=== PATIENT | male | born 1950 | race Caucasian/White ===

== ENCOUNTER → 2017-03-18 | Outpatient (CLI) | payer OTHER, MEDICAID ==
[2017-02-23 17:18] VITALS: BP 139/85
[2017-03-18 11:14] LABS: BASOPHILS # (AUTO) 0.1 X10^3/uL (0.0-0.1); BASOPHILS % (AUTO) 0.9 % (0.2-1.0); EOSINOPHILS # (AUTO) 0.2 x10^3/uL (0.0-0.2); EOSINOPHILS % (AUTO) 2.2 % (0.9-2.9); HEMATOCRIT 51.3 % (42.0-54.0); HEMOGLOBIN 17.6 g/dL (13.5-18.0); LYMPHOCYTES # (AUTO) 2.4 X10^3/uL (1.3-2.9); LYMPHOCYTES % (AUTO) 24.4 % (21.0-51.0); MEAN CORPUSCULAR HEMOGLOBIN 31.3 pg (27.0-34.0); MEAN CORPUSCULAR HGB CONC 34.4 g/dL (33.0-35.0); MEAN CORPUSCULAR VOLUME 91.2 fL (80.0-100.0); MEAN PLATELET VOLUME 8.4 fL (7.4-11.0); MONOCYTES # (AUTO) 0.8 x10^3/uL (0.3-0.8); MONOCYTES % (AUTO) 7.7 % (0.0-13.0); NEUTROPHILS # (AUTO) 6.4 x10^3/uL (2.2-4.8); NEUTROPHILS % (AUTO) 64.8 % (42.0-75.0); PLATELET COUNT 210 X10^3/uL (150.0-450.0); RED BLOOD COUNT 5.63 X10^6/uL (4.7-6.0); RED CELL DISTRIBUTION WIDTH 13.7 % (11.6-16.5)
[2017-03-18 11:21] LABS: ALANINE AMINOTRANSFERASE 39 Units/L (12-78); ALBUMIN 3.8 g/dL (3.4-5.0); ALKALINE PHOSPHATASE 53 Units/L (46-116); ASPARTATE AMINO TRANSFERASE 24 Units/L (15-37); BILIRUBIN,DIRECT 0.11 mg/dL (0-0.2); BLOOD UREA NITROGEN 26 mg/dL (7-18); CALCIUM 8.8 mg/dL (8.5-10.1); CARBON DIOXIDE 24.8 mmol/L (21-32); CHLORIDE 109 mmol/L (98-107); CHOL/HDL RATIO 2.9 (0.0-5.0); CHOLESTEROL 108 mg/dL (0-200); CREATININE 1.94 mg/dL (0.70-1.30); GLUCOSE 107 mg/dL (65-99); HDL CHOLESTEROL 37 mg/dL (40-60); SODIUM 142 mmol/L (136-145); TOTAL PROTEIN 7.2 g/dL (6.4-8.2); TRIGLYCERIDES 126 mg/dL (0-150); eGFR BLACK RACES 44 (>60); eGFR NON BLACK RACES 37 (>60)
== END ==
LOC: LAB 10:40
PROVIDERS: ATTEND Physician Assistant
DX: R94.39 Abnormal result of other cardiovascular function study (principal); I10 Essential (primary) hypertension; E78.4 Other hyperlipidemia
CPT/HCPCS: 36415; 80048; 80061; 80076; 85025

== ENCOUNTER → 2017-03-31 | Outpatient (CLI) | payer OTHER, MEDICAID ==
[2017-02-23 17:18] VITALS: BP 139/85
[2017-03-31 09:44] LABS: BASOPHILS # (AUTO) 0.1 X10^3/uL (0.0-0.1); EOSINOPHILS # (AUTO) 0.2 x10^3/uL (0.0-0.2); EOSINOPHILS % (AUTO) 1.8 % (0.9-2.9); HEMATOCRIT 49.9 % (42.0-54.0); HEMOGLOBIN 17.4 g/dL (13.5-18.0); LYMPHOCYTES # (AUTO) 2.3 X10^3/uL (1.3-2.9); LYMPHOCYTES % (AUTO) 21.4 % (21.0-51.0); MEAN CORPUSCULAR HEMOGLOBIN 31.4 pg (27.0-34.0); MEAN CORPUSCULAR HGB CONC 34.8 g/dL (33.0-35.0); MEAN CORPUSCULAR VOLUME 90.1 fL (80.0-100.0); MEAN PLATELET VOLUME 8.5 fL (7.4-11.0); MONOCYTES # (AUTO) 0.8 x10^3/uL (0.3-0.8); MONOCYTES % (AUTO) 7.8 % (0.0-13.0); NEUTROPHILS # (AUTO) 7.4 x10^3/uL (2.2-4.8); PLATELET COUNT 223 X10^3/uL (150.0-450.0); RED BLOOD COUNT 5.54 X10^6/uL (4.7-6.0); RED CELL DISTRIBUTION WIDTH 13.3 % (11.6-16.5); WHITE BLOOD COUNT 10.9 X10^3/uL (3.6-10.0)
[2017-03-31 09:54] LABS: ALBUMIN 3.7 g/dL (3.4-5.0); BLOOD UREA NITROGEN 30 mg/dL (7-18); CARBON DIOXIDE 21.8 mmol/L (21-32); CHLORIDE 109 mmol/L (98-107); CHOL/HDL RATIO 2.9 (0.0-5.0); CHOLESTEROL 112 mg/dL (0-200); COR NA(FOR HYPERGLY) 140 mmol/L (136-145); CREATININE 1.78 mg/dL (0.70-1.30); GLUCOSE 120 mg/dL (65-99); HDL CHOLESTEROL 38 mg/dL (40-60); PHOSPHORUS 3.4 mg/dL (2.6-4.7); SODIUM 140 mmol/L (136-145); TRIGLYCERIDES 102 mg/dL (0-150); eGFR BLACK RACES 49 (>60); eGFR NON BLACK RACES 40 (>60)
== END ==
LOC: LAB 09:25
PROVIDERS: ATTEND Internal Medicine
DX: I12.9 Hypertensive chronic kidney disease with stage 1 through stage 4 chronic kidney disease, or unspecified chronic kidney disease (principal); N18.3 Chronic kidney disease, stage 3 (moderate)
CPT/HCPCS: 36415; 80061; 80069; 85025

== ENCOUNTER 2017-04-07 18:24 | Emergency (ER) | payer OTHER, MEDICAID ==
[2017-04-07 18:28] VITALS: BP 119/73; BMI 25.5
== END 2017-04-07 20:04 | disposition left against medical advice (07) ==
LOC: ER 18:34
DX: R19.09 Other intra-abdominal and pelvic swelling, mass and lump (principal); Z98.890 Other specified postprocedural states
CPT/HCPCS: 99281

== ENCOUNTER 2017-05-20 09:47 | Day surgery (SDC) | payer OTHER, MEDICAID ==
[2017-05-20] MEDS ORDERED: VERSED ONE (10:15)
[2017-05-20] MEDS ORDERED: NS 500 ML IV 500 ML IV ONE (10:15)
[2017-05-20] MEDS ORDERED: DIPRIVAN VIAL ONE (10:15)
[2017-05-20] MEDS ORDERED: TETRACAINE 0.5% OPHTH 1 DOSE AFFEYE ONE ×4 (10:15→13:30)
[2017-05-20] MEDS ORDERED: VIGAMOX 0.5% OPHTH 1 DOSE AFFEYE ONE ×5 (10:20→13:41)
[2017-05-20] MEDS ORDERED: PROLENSA OPHTH 1 DOSE AFFEYE ONE (10:31)
[2017-05-20] MEDS ORDERED: ALPHAGAN-P OPHTH 1 DOSE AFFEYE ONE (10:32)
[2017-05-20] MEDS ORDERED: MYDRIACIL OPHTH 1 DOSE AFFEYE ONE ×3 (10:33→10:35)
[2017-05-20] MEDS ORDERED: CYCLOGYL 1% OPHTH 1 DOSE OP ONE ×3 (10:33→10:35)
[2017-05-20] MEDS ORDERED: AK-DILATE 2.5% OPHTH 1 DOSE OP ONE ×3 (10:33→10:35)
[2017-05-20] MEDS ORDERED: BETADINE OPHTH SOLN 5% EACHEYE ONE (13:18)
[2017-05-20] MEDS ORDERED: XYLOCAINE-MPF 1% IJ ONE ×2 (13:23→13:30)
[2017-05-20] MEDS ORDERED: ADRENALINE CHL INJ IJ ONE ×2 (13:23→13:30)
[2017-05-20] MEDS ORDERED: DUOVISC IO ONE ×2 (13:23→13:30)
[2017-05-20] MEDS ORDERED: BSS OPHTH (PLAIN) 500 ML with VANCOMYCIN HCL 500 MG VIAL 25 MG, ADRENALINE CHL INJ 1 MG IR ONE ×6 (13:23)
[2017-05-20 14:20] VITALS: BP 150/87
== END 2017-05-20 14:05 | disposition home or self-care (01) ==
LOC: SURG1 09:47
PROVIDERS: ATTEND Ophthalmology
PROC: 08RK3JZ Replacement of Left Lens with Synthetic Substitute, Percutaneous Approach (ICD-10-PCS; principal; 2017-05-20 18:00)
PROC: 08DK3ZZ Extraction of Left Lens, Percutaneous Approach (ICD-10-PCS; principal; 2017-05-20 18:00)
DX: H25.12 Age-related nuclear cataract, left eye (principal); H25.012 Cortical age-related cataract, left eye
CPT/HCPCS: A4217; J0170; J2250; J3370; J3490

== ENCOUNTER 2017-06-15 13:21 | Emergency (ER) | payer OTHER, MEDICAID ==
[2017-06-15 13:29] VITALS: BP 102/72; BMI 25.7
--- NOTE | 2017-06-15 13:57 | DR.GENAD ---
HPI - PCP Primary Care Physician: NOE - Complaint/Symptoms Chief Complaint Doctors Comments: He is been stressed by his family he states. He has not slept in 2 days. He went on a round trip from [place] to [place] (He left on 06/13/17 at 1PM and returned yesterday at 11PM. He was about to take a nap this afternoon and felt heart skipping. He denies chest pain. He also states that he takes 0.5mg of Xanax TID. Hx. of M.I. in 2014 Chief Complaint:: PT C/O HEART SKIPPING A BEAT. AND ALOT OF STRESSFUL THINGS GOING ON IN HIS LIFE. PT STATES HE USUALLY TAKES XANAX, BUT HE IS OUT OF MEDICATIONS. PT STATES HE HAS RECENTLY HAD X2 HEART ATTACK AND THE WAY HIS HEART FEELING FUNNY HAS GOT HIM WORRIED. - Source History Provided: Patient - Mode of Arrival Mode of Arrival: Ambulatory - Timing Onset of Chief Complaint: 06/14/17 Came on: Gradually - Duration Duration: Since Onset - Modifying Factors Worsens:: nothing Improves:: nothing PMH - PMH Past Medical History: Yes Past Medical History: Hypertension, [place] Past Medical History Comment: CKD Past Surgical History: Yes Surgical History: Angioplasty/Stents - Family History History of Family Medical Conditions: Yes Family Medical History: Cancer, Coronary Artery Disease, Hypertension - Social History Does patient currently use any type of tobacco product: Yes Have you used tobacco products in the last 12 months: Yes Type of Tobacco Use: Cigarettes How many years tobacco product used: 30 Packs per day or dips/chews per day: 1/2 Does any household member use tobacco: Yes Alcohol Use: None Do you use any recreational Drugs:: No Lives With: Family Lives Where: Home - infectious screening In the last 2 months have you had wt loss of >10#?: NO Have you had fever, night sweats or hemotysis?: No Have you traveled outside the country in the last 6 months?: No Isolation: Standard ROS - Review of Systems Eyes: No Symptoms Reported ENTM: No Symptoms Reported Respiratoy: No Symptoms Reported Cardiovascular: Other (skipped heart beats) Gastrointestinal/Abdominal: No Symptoms Reported Genitourinary: No Symptoms Reported Neurological: No Symptoms Reported Musculoskeletal: No Symptoms Reported Integumentary: No Symptoms Reported Hematologic/Lymphatic: No Symptoms Reported Endocrine: No Symptoms Reported Psychiatric: No Symptoms Reported All Other Systems: Reviewed and Negative PE - Vital Signs Vitals: Temperature 97.6 F Pulse Rate 87 Respiratory Rate 18 Blood Pressure [Right Arm] 145/88 Blood Pressure 102/72 O2 Sat by Pulse Oximetry 96 - General Limitations: No Limitations General Appearance: Alert, In No Apparent Distress - Head Head Exam: Normal Inspection - Eyes Eye exam: Normal Appearance - ENT ENT Exam: Normal Exam External Ear Exam: Normal External Inspection TM/Canal Exam: Bilateral Normal Nose Exam: Normal Nose Exam Mouth Exam: Normal Inspection Throat Exam: Normal Inspection - Neck Neck Exam: Normal Inspection - Chest Chest Inspection: Normal Inspection - Respiratory Respiratory Exam: Normal Lung Sounds Bilat Respiratory Exam: Bilateral Clear to Auscultation - Cardiovascular Cardiovascular Exam: Regular Rate, Normal Rhythm - Abdominal Exam Abdominal Exam: Normal Inspection, Normal Bowel Sounds, Soft - Extremities Extremities Exam: Normal Inspection - Back Back Exam: Normal Inspection - Neurologic Neurological Exam: Alert, Oriented X3 - Psychiatric Psychiatric Exam: Normal Mood, Anxious - Skin Skin Exam: Warm, Dry, Intact, Normal Color ROR - Labs Reviewed Result Diagrams: 06/15/17 14:02 06/15/17 14:02 Laboratory: WBC 12.8 X10^3/uL (3.6-10.0) H 06/15/17 14:02 RBC 5.56 X10^6/uL (4.7-6.0) 06/15/17 14:02 Hgb 17.3 g/dL (13.5-18.0) 06/15/17 14:02 Hct 50.2 % (42.0-54.0) 06/15/17 14:02 MCV 90.2 fL (80.0-100.0) 06/15/17 14:02 MCH 31.1 pg (27.0-34.0) 06/15/17 14:02 MCHC 34.5 g/dL (33.0-35.0) 06/15/17 14:02 RDW 13.6 % (11.6-16.5) 06/15/17 14:02 Plt Count 228 X10^3/uL (150.0-450.0) 06/15/17 14:02 MPV 8.3 fL (7.4-11.0) 06/15/17 14:02 Neut % 72.0 % (42.0-75.0) 06/15/17 14:02 Lymph % 18.7 % (21.0-51.0) L 06/15/17 14:02 [place] % 7.6 % (0.0-13.0) 06/15/17 14:02 Eos % 0.8 % (0.9-2.9) L 06/15/17 14:02 Baso % 0.9 % (0.2-1.0) 06/15/17 14:02 Neut # 9.3 x10^3/uL (2.2-4.8) H 06/15/17 14:02 Lymph # 2.4 X10^3/uL (1.3-2.9) 06/15/17 14:02 [place] # 1.0 x10^3/uL (0.3-0.8) H 06/15/17 14:02 Eos # 0.1 x10^3/uL (0.0-0.2) 06/15/17 14:02 Baso # 0.1 X10^3/uL (0.0-0.1) 06/15/17 14:02 Absolute Nucleated RBC 0.0 /100WBC 06/15/17 14:02 Sodium 141 mmol/L (136-145) 06/15/17 14:02 Corrected Sodium 142 mmol/L (136-145) 06/15/17 14:02 Potassium 4.3 mmol/L (3.5-5.1) 06/15/17 14:02 Chloride 106 mmol/L (98-107) 06/15/17 14:02 Carbon Dioxide 23.1 mmol/L (21-32) 06/15/17 14:02 BUN 31 mg/dL (7-18) H 06/15/17 14:02 Creatinine 2.43 mg/dL (0.70-1.30) H 06/15/17 14:02 Est GFR (MDRD) Af Amer 34 (>60) L 06/15/17 14:02 Est GFR (MDRD) Non-Af 28 (>60) L 06/15/17 14:02 Glucose 131 mg/dL (65-99) H 06/15/17 14:02 Calcium 9.5 mg/dL (8.5-10.1) 06/15/17 14:02 Corrected Calcium TNP 06/15/17 14:02 Total Bilirubin 0.70 mg/dL (0.2-1.0) 06/15/17 14:02 AST 32 Units/L (15-37) 06/15/17 14:02 ALT 35 Units/L (12-78) 06/15/17 14:02 Alkaline Phosphatase 65 Units/L (46-116) 06/15/17 14:02 Creatine Kinase 959 Units/L (39-308) H 06/15/17 14:02 CK-MB (CK-2) 7.8 ng/mL (0-4.0) H* 06/15/17 14:02 CK/CKMB % Calc 0.8 % (<4) 06/15/17 14:02 Troponin I < 0.02 ng/mL (0-1.5) 06/15/17 14:02 Total Protein 7.2 g/dL (6.4-8.2) 06/15/17 14:02 Albumin 3.7 g/dL (3.4-5.0) 06/15/17 14:02 Globulin 3.5 g/dL (2.5-4.5) 06/15/17 14:02 Albumin/Globulin Ratio 1.1 Ratio (1.1-2.1) 06/15/17 14:02 - Diagnosis Discharge Problem: Anxiety, Trigeminy, CKD (chronic kidney disease) stage 3, GFR 30-59 ml/min Narrative Support Text: He states that he is under the care of a kidney doctor. He is seen about q 4 months. His Cr. reviewed on hosp. records here vary between 1.6 to 2.4 - Discharge Plan Disposition: 01 HOME, SELF-CARE Condition: Stable - Follow ups/Referrals Follow ups/Referrals: FELA LIU [Primary Care Provider] - 3 days - Instructions
[2017-06-15] MEDS ORDERED: XANAX PO ONE (14:09)
[2017-06-15 14:10] LABS: BASOPHILS # (AUTO) 0.1 X10^3/uL (0.0-0.1); BASOPHILS % (AUTO) 0.9 % (0.2-1.0); EOSINOPHILS # (AUTO) 0.1 x10^3/uL (0.0-0.2); EOSINOPHILS % (AUTO) 0.8 % (0.9-2.9); HEMATOCRIT 50.2 % (42.0-54.0); HEMOGLOBIN 17.3 g/dL (13.5-18.0); LYMPHOCYTES # (AUTO) 2.4 X10^3/uL (1.3-2.9); LYMPHOCYTES % (AUTO) 18.7 % (21.0-51.0); MEAN CORPUSCULAR HEMOGLOBIN 31.1 pg (27.0-34.0); MEAN CORPUSCULAR HGB CONC 34.5 g/dL (33.0-35.0); MEAN CORPUSCULAR VOLUME 90.2 fL (80.0-100.0); MEAN PLATELET VOLUME 8.3 fL (7.4-11.0); MONOCYTES % (AUTO) 7.6 % (0.0-13.0); NEUTROPHILS # (AUTO) 9.3 x10^3/uL (2.2-4.8); PLATELET COUNT 228 X10^3/uL (150.0-450.0); RED BLOOD COUNT 5.56 X10^6/uL (4.7-6.0); RED CELL DISTRIBUTION WIDTH 13.6 % (11.6-16.5); WHITE BLOOD COUNT 12.8 X10^3/uL (3.6-10.0)
--- NOTE | 2017-06-15 14:20 | RAD ---
HISTORY: Chest pain. Study: Single-view chest. Comparison: Be none. Findings: The trachea is midline. The cardiac silhouette is within normal limits. The lungs are clear without focal infiltrate or effusion. The bony thorax is unremarkable. IMPRESSION: No acute cardiopulmonary disease. Reported By:
[2017-06-15 14:26] LABS: BLOOD UREA NITROGEN 31 mg/dL (7-18); CALCIUM 9.5 mg/dL (8.5-10.1); CARBON DIOXIDE 23.1 mmol/L (21-32); CHLORIDE 106 mmol/L (98-107); COR NA(FOR HYPERGLY) 142 mmol/L (136-145); CREATININE 2.43 mg/dL (0.70-1.30); SODIUM 141 mmol/L (136-145); TROPONIN I < 0.02 ng/mL (0-1.5); eGFR BLACK RACES 34 (>60); eGFR NON BLACK RACES 28 (>60)
[2017-06-15] MEDS ORDERED: XANAX ONE (14:30)
[2017-06-15] MEDS ORDERED: NS 1000 ML 1,000 ML ONE (14:37)
[2017-06-15] MEDS ORDERED: NS 1000 ML 1,000 ML IV ONE (14:37)
[2017-06-15 15:01] LABS: ALANINE AMINOTRANSFERASE 35 Units/L (12-78); ALBUMIN 3.7 g/dL (3.4-5.0); ALKALINE PHOSPHATASE 65 Units/L (46-116); ASPARTATE AMINO TRANSFERASE 32 Units/L (15-37); CKMB % 0.8 % (<4); CREATINE KINASE 959 Units/L (39-308); TOTAL PROTEIN 7.2 g/dL (6.4-8.2)
[2017-06-15 15:03] LABS: CREATINE KINASE MB 7.8 ng/mL (0-4.0)
[2017-06-15] MEDS ORDERED: XANAX PO PRN (16:25)
== END 2017-06-15 16:40 | disposition home or self-care (01) ==
LOC: ER 13:49
DX: F41.8 Other specified anxiety disorders (principal); N18.3 Chronic kidney disease, stage 3 (moderate); R00.8 Other abnormalities of heart beat
CPT/HCPCS: 36415; 71010; 80053; 82550; 82553; 84484; 85025; 93005; 93010; 96365; 99283; A4222

== ENCOUNTER 2017-07-01 07:22 | Day surgery (SDC) | payer OTHER, MEDICAID ==
[2017-07-01] MEDS ORDERED: NS 500 ML IV 500 ML IV ONE (07:29)
[2017-07-01] MEDS ORDERED: TETRACAINE 0.5% OPHTH 1 DOSE AFFEYE ONE ×2 (08:00→10:06)
[2017-07-01] MEDS ORDERED: VIGAMOX 0.5% OPHTH 1 DOSE AFFEYE ONE ×5 (08:05→10:36)
[2017-07-01] MEDS ORDERED: PROLENSA OPHTH 1 DOSE AFFEYE ONE (08:16)
[2017-07-01] MEDS ORDERED: ALPHAGAN-P OPHTH 1 DOSE AFFEYE ONE (08:17)
[2017-07-01] MEDS ORDERED: MYDRIACIL OPHTH 1 DOSE AFFEYE ONE ×3 (08:18→08:20)
[2017-07-01] MEDS ORDERED: AK-DILATE 2.5% OPHTH 1 DOSE OP ONE ×3 (08:18→08:20)
[2017-07-01] MEDS ORDERED: CYCLOGYL 1% OPHTH 1 DOSE OP ONE ×3 (08:18→08:20)
[2017-07-01] MEDS ORDERED: BETADINE OPHTH SOLN 5% EACHEYE ONE (10:06)
[2017-07-01] MEDS ORDERED: ADRENALINE CHL INJ IJ ONE ×2 (10:09→10:24)
[2017-07-01] MEDS ORDERED: XYLOCAINE-MPF 1% IJ ONE ×2 (10:09→10:24)
[2017-07-01] MEDS ORDERED: DUOVISC IO ONE ×2 (10:09→10:24)
[2017-07-01] MEDS ORDERED: BSS OPHTH (PLAIN) 500 ML with VANCOMYCIN HCL 500 MG VIAL 25 MG, ADRENALINE CHL INJ 1 MG IR ONE ×6 (10:10)
[2017-07-01 13:27] VITALS: BP 135/81
[2017-07-01] MEDS ORDERED: DIPRIVAN VIAL ONE (13:40)
[2017-07-01] MEDS ORDERED: VERSED ONE (13:40)
== END 2017-07-01 11:05 | disposition home or self-care (01) ==
LOC: SURG1 07:22
PROVIDERS: ATTEND Ophthalmology
PROC: 08RJ3JZ Replacement of Right Lens with Synthetic Substitute, Percutaneous Approach (ICD-10-PCS; principal; 2017-07-01 00:30)
PROC: 08DJ3ZZ Extraction of Right Lens, Percutaneous Approach (ICD-10-PCS; principal; 2017-07-01 00:30)
DX: H25.11 Age-related nuclear cataract, right eye (principal); H25.011 Cortical age-related cataract, right eye
CPT/HCPCS: A4217; J0170; J2250; J3370; J3490

== ENCOUNTER 2017-08-25 14:32 | Emergency (ER) | payer OTHER, MEDICAID ==
[2017-08-25 14:56] VITALS: BMI 25.7
[2017-08-25 15:13] LABS: BASOPHILS # (AUTO) 0.1 X10^3/uL (0.0-0.1); EOSINOPHILS # (AUTO) 0.1 x10^3/uL (0.0-0.2); EOSINOPHILS % (AUTO) 0.9 % (0.9-2.9); HEMATOCRIT 50.6 % (42.0-54.0); HEMOGLOBIN 17.3 g/dL (13.5-18.0); LYMPHOCYTES # (AUTO) 2.4 X10^3/uL (1.3-2.9); LYMPHOCYTES % (AUTO) 17.9 % (21.0-51.0); MEAN CORPUSCULAR HEMOGLOBIN 30.9 pg (27.0-34.0); MEAN CORPUSCULAR HGB CONC 34.2 g/dL (33.0-35.0); MEAN CORPUSCULAR VOLUME 90.4 fL (80.0-100.0); MEAN PLATELET VOLUME 8.6 fL (7.4-11.0); MONOCYTES # (AUTO) 1.1 x10^3/uL (0.3-0.8); NEUTROPHILS # (AUTO) 9.8 x10^3/uL (2.2-4.8); NEUTROPHILS % (AUTO) 72.2 % (42.0-75.0); PLATELET COUNT 240 X10^3/uL (150.0-450.0); RED BLOOD COUNT 5.59 X10^6/uL (4.7-6.0); RED CELL DISTRIBUTION WIDTH 13.2 % (11.6-16.5); WHITE BLOOD COUNT 13.6 X10^3/uL (3.6-10.0)
[2017-08-25 15:22] LABS: BLOOD UREA NITROGEN 26 mg/dL (7-18); CALCIUM 9.4 mg/dL (8.5-10.1); CARBON DIOXIDE 21.6 mmol/L (21-32); CHLORIDE 105 mmol/L (98-107); SODIUM 140 mmol/L (136-145); eGFR BLACK RACES 48 (>60); eGFR NON BLACK RACES 40 (>60)
[2017-08-25 15:24] LABS: SALICYLATE < 2.8 mg/dL (2.8-20)
[2017-08-25 15:29] LABS: ACETAMINOPHEN < 0.0 ug/mL (10-30)
[2017-08-25 15:30] LABS: BLOOD ALCOHOL < 3.0 mg/dL (0-19.9)
[2017-08-25 16:22] LABS: BILIRUBIN,URINE NEGATIVE (NEGATIVE); BLOOD/HEMOGLOBIN,URINE NEGATIVE (NEGATIVE); GLUCOSE, URINE NEGATIVE (NEGATIVE); KETONES,URINE NEGATIVE (NEGATIVE); LEUKOCYTE ESTERASE ,URINE 1+ (NEGATIVE); NITRITES,URINE NEGATIVE (NEGATIVE); PROTEIN,URINE NEGATIVE (NEGATIVE); UROBILINOGEN,URINE NORMAL (NORMAL)
[2017-08-25 16:44] LABS: APPEARANCE,URINE HAZY (CLEAR); BACTERIA,URINE NEGATIVE /HPF (NEGATIVE); COLOR,URINE YELLOW (YELLOW); RBC,URINE 0-2 /HPF (NEGATIVE); SQUAMOUS EPITHELIAL CELL,UR NEGATIVE /HPF (NEGATIVE)
[2017-08-25] MEDS ORDERED: CATAPRES TAB 0.2 MG PO ONE (17:07)
[2017-08-25] MEDS ORDERED: CATAPRES TAB 0.2 MG ONE (17:10)
[2017-08-25 19:24] LABS: ALANINE AMINOTRANSFERASE 39 Units/L (12-78); ALKALINE PHOSPHATASE 64 Units/L (46-116); ASPARTATE AMINO TRANSFERASE 34 Units/L (15-37); TOTAL PROTEIN 7.6 g/dL (6.4-8.2)
--- NOTE | 2017-08-25 23:58 | DR.GENAD ---
HPI - PCP Primary Care Physician: DR CONTRERAS - HPI Comment HPI Comment: PATIENT HAVE CAD, HTN AND SOME OHTHER CHRONIC MEDICAL PROBLEMS CONTROL WITH MEDS. BP SLIGHTLY HIGH. DID NOT TAKE METOPROLOL YET. DENIES FEVER, COUGH OR CONGESTION. DENIES CHEST PAIN. PATIENT DENIES SUICIDAL OR HOMICIDAL IDEATIONS. DENIES HISTORY OF DEPRESSION. LOW DOSE PRN XANAX PRESCRIBE TO HIM BY PCP. - Complaint/Symptoms Chief Complaint Doctors Comments: PATIENT HERE WITH LETTER TO APPREHEND. Chief Complaint:: PATIENT ARRIVED WITH [facility]. TO BE MEDICALY CLEARED FOR MENTAL HEALTH. - Nurses notes reviewed Nurses Notes Review: Yes - Source History Provided: Patient, Law Enforcement - Mode of Arrival Mode of Arrival: Ambulatory - Timing Onset of Chief Complaint: 08/25/17 - Duration Duration: Constant Duration: Minutes - Severity Severity: Mild PMH - PMH Past Medical History: Yes Past Medical History: Hypertension, [place] Past Surgical History: Yes Surgical History: Angioplasty/Stents - Family History History of Family Medical Conditions: Yes Family Medical History: Cancer, Coronary Artery Disease, Hypertension - Social History Does patient currently use any type of tobacco product: Yes Have you used tobacco products in the last 12 months: Yes Type of Tobacco Use: Cigarettes How many years tobacco product used: 20 Does any household member use tobacco: No Alcohol Use: None Do you use any recreational Drugs:: No Lives With: Family Lives Where: Home - infectious screening In the last 2 months have you had wt loss of >10#?: NO Have you had fever, night sweats or hemotysis?: No Have you traveled outside the country in the last 6 months?: No Isolation: Standard ROS - Review of Systems Constitutional: No Symptoms Reported. negative: Chills, Fever, Weakness, Fatigue Eyes: No Symptoms Reported. negative: Eye Pain, Discharge ENTM: No Symptoms Reported. negative: Ear Pain, Nose Discharge, Nose Congestion , Throat Pain Respiratoy: No Symptoms Reported. negative: Productive Cough, Non-Productive Cough, Short of Breath, Wheezing, Hemoptysis Cardiovascular: negative: Chest Pain, Edema Gastrointestinal/Abdominal: negative: Abdominal Pain, Diarrhea, Nausea, Vomiting Genitourinary: No Symptoms Reported. negative: Dysuria, Frequency, Hematuria Neurological: negative: Headache, Weakness, Dizziness Musculoskeletal: No Symptoms Reported Integumentary: negative: Change in Color, Bruises, Juandice Hematologic/Lymphatic: Easy Bleeding, Easy Bruising Endocrine: No Symptoms Reported Psychiatric: Anxiety All Other Systems: Reviewed and Negative PE - Vital Signs Vitals: Temperature 98.0 F Pulse Rate [Left Brachial] 73 Pulse Rate 83 Respiratory Rate 18 Blood Pressure [Left Arm] 166/97 Blood Pressure [Right Arm] 172/92 Blood Pressure 185/100 O2 Sat by Pulse Oximetry 99 - General Limitations: No Limitations General Appearance: Alert - Head Head Exam: Normal Inspection - Eyes Eye exam: Normal Appearance - ENT ENT Exam: Normal External Ear Exam External Ear Exam: Normal External Inspection TM/Canal Exam: Bilateral Normal Nose Exam: Normal Nose Exam Mouth Exam: Normal Inspection Throat Exam: Normal Inspection - Neck Neck Exam: Normal Inspection - Chest Chest Inspection: Symmetric Chest Wall Rise - Respiratory Respiratory Exam: Normal Lung Sounds Bilat Respiratory Exam: Bilateral Clear to Auscultation - Cardiovascular Cardiovascular Exam: Regular Rate - Abdominal Exam Abdominal Exam: Normal Inspection, Normal Bowel Sounds. negative: Tenderness - Extremities Extremities Exam: Normal Inspection - Back Back Exam: Normal Inspection - Neurologic Neurological Exam: Alert, Oriented X3, CN II-XII Intact - Psychiatric Psychiatric Exam: Normal Affect, Normal Mood - Skin Skin Exam: Normal Color MDM - Differential Diagnosis Differential Diagnosis: LETTER TO APPREHEND, HTN, CAD, MEDICAL CLEARANCE Course - Treatment Treatment: SEE ORDERS. - Consultation Consultation Comments: MENTAL HEALTH CONSULT/MEDICALLY CLEAR. MENTAL HEALTH HOPPER FILLER IN ED TO EVALUATE PATIENT. PATIENT TO FOLLOW WITH PCP. - Education/Counseling Education/Counseling: Patient, Education Educated On: Diagnosis, Needs for Follow Up ROR - Labs Reviewed Laboratory Results Reviewed?: Yes Result Diagrams: 08/25/17 15:00 08/25/17 15:00 Laboratory: WBC 13.6 X10^3/uL (3.6-10.0) H 08/25/17 15:00 RBC 5.59 X10^6/uL (4.7-6.0) 08/25/17 15:00 Hgb 17.3 g/dL (13.5-18.0) 08/25/17 15:00 Hct 50.6 % (42.0-54.0) 08/25/17 15:00 MCV 90.4 fL (80.0-100.0) 08/25/17 15:00 MCH 30.9 pg (27.0-34.0) 08/25/17 15:00 MCHC 34.2 g/dL (33.0-35.0) 08/25/17 15:00 RDW 13.2 % (11.6-16.5) 08/25/17 15:00 Plt Count 240 X10^3/uL (150.0-450.0) 08/25/17 15:00 MPV 8.6 fL (7.4-11.0) 08/25/17 15:00 Neut % 72.2 % (42.0-75.0) 08/25/17 15:00 Lymph % 17.9 % (21.0-51.0) L 08/25/17 15:00 [place] % 8.0 % (0.0-13.0) 08/25/17 15:00 Eos % 0.9 % (0.9-2.9) 08/25/17 15:00 Baso % 1.0 % (0.2-1.0) 08/25/17 15:00 Neut # 9.8 x10^3/uL (2.2-4.8) H 08/25/17 15:00 Lymph # 2.4 X10^3/uL (1.3-2.9) 08/25/17 15:00 [place] # 1.1 x10^3/uL (0.3-0.8) H 08/25/17 15:00 Eos # 0.1 x10^3/uL (0.0-0.2) 08/25/17 15:00 Baso # 0.1 X10^3/uL (0.0-0.1) 08/25/17 15:00 Absolute Nucleated RBC 0.0 /100WBC 08/25/17 15:00 Sodium 140 mmol/L (136-145) 08/25/17 15:00 Corrected Sodium TNP 08/25/17 15:00 Potassium 4.5 mmol/L (3.5-5.1) 08/25/17 15:00 Chloride 105 mmol/L (98-107) 08/25/17 15:00 Carbon Dioxide 21.6 mmol/L (21-32) 08/25/17 15:00 BUN 26 mg/dL (7-18) H 08/25/17 15:00 Creatinine 1.80 mg/dL (0.70-1.30) H 08/25/17 15:00 Est GFR (MDRD) Af Amer 48 (>60) L 08/25/17 15:00 Est GFR (MDRD) Non-Af 40 (>60) L 08/25/17 15:00 Glucose 107 mg/dL (65-99) H 08/25/17 15:00 Calcium 9.4 mg/dL (8.5-10.1) 08/25/17 15:00 Corrected Calcium TNP 08/25/17 15:00 Total Bilirubin 0.40 mg/dL (0.2-1.0) 08/25/17 15:00 AST 34 Units/L (15-37) 08/25/17 15:00 ALT 39 Units/L (12-78) 08/25/17 15:00 Alkaline Phosphatase 64 Units/L (46-116) 08/25/17 15:00 Total Protein 7.6 g/dL (6.4-8.2) 08/25/17 15:00 Albumin 4.0 g/dL (3.4-5.0) 08/25/17 15:00 Globulin 3.6 g/dL (2.5-4.5) 08/25/17 15:00 Albumin/Globulin Ratio 1.1 Ratio (1.1-2.1) 08/25/17 15:00 Specimen Type Clean catch urine 08/25/17 15:48 Urine Color Yellow (YELLOW) 08/25/17 15:48 Urine Appearance Hazy (CLEAR) 08/25/17 15:48 Urine pH 6.0 (5.0 - 8.0) 08/25/17 15:48 Ur Specific [place] 1.005 (1.000-1.030) 08/25/17 15:48 Urine Protein Negative (NEGATIVE) 08/25/17 15:48 Urine Glucose (UA) Negative (NEGATIVE) 08/25/17 15:48 Urine Ketones Negative (NEGATIVE) 08/25/17 15:48 Urine Occult Blood Negative (NEGATIVE) 08/25/17 15:48 Urine Nitrite Negative (NEGATIVE) 08/25/17 15:48 Urine Bilirubin Negative (NEGATIVE) 08/25/17 15:48 Urine Urobilinogen Normal (NORMAL) 08/25/17 15:48 Ur Leukocyte Esterase 1+ (NEGATIVE) 08/25/17 15:48 Urine RBC 0-2 /HPF (NEGATIVE) 08/25/17 15:48 Urine WBC 0-2 /HPF (NEGATIVE) 08/25/17 15:48 Ur Squamous Epith Cells Negative /HPF (NEGATIVE) 08/25/17 15:48 Urine Bacteria Negative /HPF (NEGATIVE) 08/25/17 15:48 Ur Culture Indicated? No/not indicated 08/25/17 15:48 Salicylates < 2.8 mg/dL (2.8-20) L 08/25/17 15:00 Urine Opiates Screen Negative (NEG=<300) 08/25/17 15:48 Urine Methadone Screen Negative (NEG=<300) 08/25/17 15:48 Acetaminophen < 0.0 ug/mL (10-30) L 08/25/17 15:00 Ur Barbiturates Screen Negative (NEG=<200) 08/25/17 15:48 Ur Phencyclidine Scrn Negative (NEG=<25) 08/25/17 15:48 Ur Amphetamines Screen Negative (NEG=<1000) 08/25/17 15:48 U Benzodiazepines Scrn Positive (NEG=<200) 08/25/17 15:48 Urine Cocaine Screen Negative (NEG=<300) 08/25/17 15:48 U Marijuana (THC) Screen Positive (NEG=<50) A 08/25/17 15:48 Ethyl Alcohol mg/dL < 3.0 mg/dL (0-19.9) 08/25/17 15:00 - EKG Rhythm: NSR (EKG NOTED. 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 HERE FOR ODER TO APPREHEND. NO ACUTE FINDINGS. PATIENT TO FOLLOW UP WITH PCP.
[2017-08-26 00:28] VITALS: BP 166/97
== END 2017-08-26 03:00 | disposition home or self-care (01) ==
LOC: ER 14:47
DX: Z02.89 Encounter for other administrative examinations (principal); I10 Essential (primary) hypertension
CPT/HCPCS: 36415; 80053; 80307; 80320; 81001; 85025; 93005; 93010; 99285; G0434; G6038; G6039; G6040

== ENCOUNTER 2017-10-25 09:12 | Emergency (ER) | payer OTHER, MEDICAID ==
[2017-10-25 09:28] VITALS: BMI 25.1
[2017-10-25] MEDS ORDERED: CATAPRES TAB 0.2 MG PO ONE (09:35)
[2017-10-25] MEDS ORDERED: VISTARIL PO ONE ×2 (09:36→09:38)
[2017-10-25] MEDS ORDERED: CATAPRES TAB 0.2 MG ONE (09:38)
--- NOTE | 2017-10-25 09:43 | DR.GENAD ---
HPI - PCP Primary Care Physician: NLD - Complaint/Symptoms Chief Complaint Doctors Comments: Patient states he went through a devorce two months ago and his ex- has been keeping him upset. States he take Xanax 0.5mg po tid from Dr. Li but ran out because he has been taking two at night to help him sleep and cannot get another prescription for his Xanax until next week and he wants some xanax until he can get some more from his doctor. States he has been having problems with his nerves for over three years. States he is worried about his blood pressure being elevated and was taking clonidine for his blood pressure but his doctor changed it to Losartan 100mg and he has had his medicines today. He denies chest pain, SOB, nausea or vomiting. He denies headaches or dizziness. States if he can get his xanax he will go back home and sleep. Patient states he is a patient of Dr. Li in [place]. Chief Complaint:: PT. C/O VERTIGO AND STATES HE IS GOIGN THROUGH A DIVORCE AND HAS HAD A ROUGH PAST MONTH. PT. STATES HE IS OUT OF HIS XANAX AND WANTS SOME TO GET HIM THROUGH UNTIL HE CAN SEE HIS PCP ON FRIDAY. - Nurses notes reviewed Nurses Notes Review: Yes - Source History Provided: Patient - Mode of Arrival Mode of Arrival: Ambulatory - Timing Onset of Chief Complaint: 09/25/17 Came on: Gradually - Duration Duration: Intermittent How lon Duration: Days - Location Location: want refill of xanax - Severity Severity: None - Modifying Factors Worsens:: nothing Improves:: nothing PMH - PMH Past Medical History: Yes Past Medical History: Hypertension, [place] Past Surgical History: Yes Surgical History: Angioplasty/Stents - Family History History of Family Medical Conditions: Yes Family Medical History: Cancer, Coronary Artery Disease, Hypertension - Social History Does patient currently use any type of tobacco product: Yes Have you used tobacco products in the last 12 months: Yes Type of Tobacco Use: Cigarettes Does any household member use tobacco: No Alcohol Use: None Do you use any recreational Drugs:: No Lives With: Alone Lives Where: Home - infectious screening In the last 2 months have you had wt loss of >10#?: NO Have you had fever, night sweats or hemotysis?: No Have you traveled outside the country in the last 6 months?: No Isolation: Standard ROS - Review of Systems Constitutional: No Symptoms Reported, Irritable. negative: See HPI, Chills, Diaphoresis, Fever, Malaise, Weakness, Fatigue, Loss of Appetite, Other Eyes: No Symptoms Reported. negative: See HPI, Eye Pain, Blurred Vision, Tearing, Discharge, Photophobia, Diplopia, Other ENTM: No Symptoms Reported Respiratoy: No Symptoms Reported. negative: See HPI, Productive Cough, Non- Productive Cough, Moist Cough, Dry Cough, Hacking Cough, Barking Cough, Brassy Cough, Orthopnea, Short of Breath, Stridor, Wheezing, Hemoptysis, Other Cardiovascular: No Symptoms Reported. negative: See HPI, Chest Pain, Edema, Palpitations, Syncope, Cyanosis, Skin Mottling, Other Gastrointestinal/Abdominal: No Symptoms Reported. negative: See HPI, Abdominal Pain, Constipation, Diarrhea, Nausea, Vomiting, Food Intolerance, Other Genitourinary: No Symptoms Reported Neurological: No Symptoms Reported, Anxiety, Emotional Problems. negative: See HPI, Depressed, Headache, Numbness, Paresthesia, Pre-existing Deficit, Seizure, Tingling, Tremors, Weakness, Dizziness, Problems Walking, Speech Problem, Other Musculoskeletal: No Symptoms Reported Integumentary: No Symptoms Reported Hematologic/Lymphatic: No Symptoms Reported Endocrine: No Symptoms Reported Psychiatric: No Symptoms Reported, Anxiety. negative: See HPI, Depression, Hallucinations, Excessive crying, Suicidal, Other PE - Vital Signs Vitals: Temperature 97.3 F Pulse Rate 78 Respiratory Rate 18 Blood Pressure [Left Arm] 166/97 Blood Pressure [Right Arm] 172/92 Blood Pressure 192/106 O2 Sat by Pulse Oximetry 96 - General Limitations: No Limitations General Appearance: Alert, In No Apparent Distress. negative: Appears Intoxicated, Anxious, Lethargic, Obtunded, In Distress, Obese, Cachectic, Other - Head Head Exam: Normal Inspection, Atraumatic, Normocephalic - Eyes Eye exam: Normal Appearance, PERRL, EOMI. negative: Scleral Icterus, Conjunctival Injection, Nystagmus, Miosis, Mydrasis, Periorbital Swelling, Periorbital Tenderness, Other - ENT ENT Exam: Normal Exam, Normal Oropharynx, Normal External Ear Exam, Mucous Membranes Moist, TM's Normal Bilaterally External Ear Exam: Normal External Inspection TM/Canal Exam: Bilateral Normal Nose Exam: Normal Nose Exam Mouth Exam: Normal Inspection Throat Exam: Normal Inspection - Neck Neck Exam: Normal Inspection, Full ROM, Trachea Midline - Chest Chest Inspection: Normal Inspection, Symmetric Chest Wall Rise (prolonged expiration; intermittent rhonchi; no rales) - Respiratory Respiratory Exam: Normal Lung Sounds Bilat, Prolonged Expiratory Phase. negative: Accessory Muscle Use, Chest Wall Tenderness, Respiratory Distress, Stridor, Other Respiratory Exam: Bilateral Rhonchi (intermittent) - Cardiovascular Cardiovascular Exam: Regular Rate, Normal Rhythm, Normal Heart Sounds. negative : Bradycardia, Tachycardia, Irregular Rhythm, Systolic Murmur, Diastolic Murmur , Rubs, Gallop, Clicks, JVD, +S1, +S2, +S3, +S4, Other - Abdominal Exam Abdominal Exam: Normal Inspection, Normal Bowel Sounds, Soft. negative: Distention, Tenderness, Guarding, Rebound, Rigidity, Dimnished Bowel Sounds, Hyperactive Bowel Sounds, Hypoactive Bowel Sounds, Organomegaly, Trauma, Incision, Ascites, Mass, Bruit, Pulsatile Mass, Hernia, Other Abdominal Tenderness: negative: RUQ, RLQ, LUQ, LLQ, Epigastrium, Suprapubic, Diffuse, Mild, Moderate, Severe, Other - Extremities Extremities Exam: Normal Inspection, Full ROM, Normal Capillary Refill. negative: Tenderness, Edema, Joint Swelling, Calf Tenderness, Other - Back Back Exam: Normal Inspection, Full ROM. negative: Tenderness, (R) CVA Tenderness, (L) CVA Tenderness, Muscle Spasm, Paraspinal Tenderness, Vertebral Tenderness, Rashes, (R) Sciatic Notch Tenderness, (L) Sciatic Notch Tendern, (R ) Straight Leg Raise, (L) Straight Leg Raise, Other - Neurologic Neurological Exam: Alert, Oriented X3, CN II-XII Intact, Normal Gait, Reflexes Normal - Psychiatric Psychiatric Exam: Normal Affect, Normal Mood. negative: Depressed, Agitated, Anxious, Flat Affect, Manic, Homicidal Ideation, Suicidal Ideation, Other - Skin Skin Exam: Warm, Dry, Intact, Normal Color - Diagnosis Discharge Problem: Anxiety neurosis, Essential hypertension COPD (chronic obstructive pulmonary disease) Qualifiers: Emphysema type: unspecified - Discharge Plan Disposition: 01 HOME, SELF-CARE Condition: Stable - Follow ups/Referrals Follow ups/Referrals: XIOMARA,Yokasta [Primary Care Provider] - 3 days CECE THOMAS [STAFF PHYSICIAN] - 3 days - Instructions Instructions: Managing Your High Blood Pressure, Hypertension, [id number], Panic Attacks, [id number]
[2017-10-25 10:11] VITALS: BP 129/85
== END 2017-10-25 10:12 | disposition home or self-care (01) ==
LOC: ER 09:15
DX: F41.1 Generalized anxiety disorder (principal); I10 Essential (primary) hypertension; J44.9 Chronic obstructive pulmonary disease, unspecified
CPT/HCPCS: 99282; Q0177

== ENCOUNTER → 2017-12-16 | Outpatient (CLI) | payer OTHER, MEDICAID ==
[2017-12-16 07:18] LABS: BASOPHILS # (AUTO) 0.1 X10^3/uL (0.0-0.1); BASOPHILS % (AUTO) 1.1 % (0.2-1.0); EOSINOPHILS # (AUTO) 0.4 x10^3/uL (0.0-0.2); EOSINOPHILS % (AUTO) 3.4 % (0.9-2.9); HEMATOCRIT 50.1 % (42.0-54.0); HEMOGLOBIN 16.9 g/dL (13.5-18.0); LYMPHOCYTES # (AUTO) 2.7 X10^3/uL (1.3-2.9); LYMPHOCYTES % (AUTO) 23.4 % (21.0-51.0); MEAN CORPUSCULAR HEMOGLOBIN 30.5 pg (27.0-34.0); MEAN CORPUSCULAR HGB CONC 33.6 g/dL (33.0-35.0); MEAN CORPUSCULAR VOLUME 90.8 fL (80.0-100.0); MEAN PLATELET VOLUME 7.7 fL (7.4-11.0); MONOCYTES # (AUTO) 1.1 x10^3/uL (0.3-0.8); MONOCYTES % (AUTO) 9.7 % (0.0-13.0); NEUTROPHILS # (AUTO) 7.1 x10^3/uL (2.2-4.8); NEUTROPHILS % (AUTO) 62.4 % (42.0-75.0); PLATELET COUNT 247 X10^3/uL (150.0-450.0); RED BLOOD COUNT 5.52 X10^6/uL (4.7-6.0); RED CELL DISTRIBUTION WIDTH 13.6 % (11.6-16.5); WHITE BLOOD COUNT 11.4 X10^3/uL (3.6-10.0)
[2017-12-16 07:37] LABS: ALANINE AMINOTRANSFERASE 33 Units/L (12-78); ALBUMIN 3.9 g/dL (3.4-5.0); ALKALINE PHOSPHATASE 69 Units/L (46-116); ASPARTATE AMINO TRANSFERASE 21 Units/L (15-37); BLOOD UREA NITROGEN 33 mg/dL (7-18); CALCIUM 8.9 mg/dL (8.5-10.1); CARBON DIOXIDE 27.2 mmol/L (21-32); CHLORIDE 107 mmol/L (98-107); CREATININE 2.13 mg/dL (0.70-1.30); SODIUM 142 mmol/L (136-145); TOTAL PROTEIN 7.6 g/dL (6.4-8.2); eGFR BLACK RACES 40 (>60); eGFR NON BLACK RACES 33 (>60)
== END ==
LOC: LAB 07:01
PROVIDERS: ATTEND Internal Medicine Cardiovascular Disease
DX: N18.4 Chronic kidney disease, stage 4 (severe) (principal)
CPT/HCPCS: 36415; 80053; 85025

== ENCOUNTER 2017-12-17 18:51 | Emergency (ER) | payer OTHER, MEDICAID ==
[2017-12-17 19:12] VITALS: BMI 24.4
--- NOTE | 2017-12-17 19:53 | DR.GENAD ---
HPI - PCP Primary Care Physician: heather - Complaint/Symptoms Chief Complaint Doctors Comments: Patient presents with complaint of blood pressure is elevated. He was taken off his medication recently. Chief Complaint:: blood pressure was elevated this evening. Patient states can inspector took him off of his Losartan yesterday. - Source History Provided: Patient - Mode of Arrival Mode of Arrival: Ambulatory - Timing Onset of Chief Complaint: 12/17/17 PMH - PMH Past Medical History: Yes Past Medical History: Anxiety, Coronary Artery Disease, Dyslipidemia, GERD, Hypertension, [place] Past Surgical History: Yes Surgical History: CABG/Valve Surgery Past Surgical History Comment: Stent x1 - Family History History of Family Medical Conditions: Yes Family Medical History: [place], Coronary Artery Disease, Hypertension - Social History Does patient currently use any type of tobacco product: Yes Have you used tobacco products in the last 12 months: Yes Type of Tobacco Use: Cigarettes Does any household member use tobacco: Yes Alcohol Use: None Do you use any recreational Drugs:: No Lives With: Spouse Lives Where: Home - infectious screening In the last 2 months have you had wt loss of >10#?: NO Have you had fever, night sweats or hemotysis?: No Have you traveled outside the country in the last 6 months?: No Isolation: Standard ROS - Review of Systems Eyes: No Symptoms Reported ENTM: No Symptoms Reported Respiratoy: No Symptoms Reported Cardiovascular: No Symptoms Reported Gastrointestinal/Abdominal: No Symptoms Reported Genitourinary: No Symptoms Reported Neurological: No Symptoms Reported Musculoskeletal: No Symptoms Reported Integumentary: No Symptoms Reported Hematologic/Lymphatic: No Symptoms Reported Endocrine: No Symptoms Reported Psychiatric: No Symptoms Reported All Other Systems: Reviewed and Negative PE - Vital Signs Vitals: Temperature 98.6 F Pulse Rate 58 Respiratory Rate 20 Blood Pressure [Left Arm] 156/95 Blood Pressure [Right Arm] 172/92 Blood Pressure 141/83 O2 Sat by Pulse Oximetry 97 - General Limitations: No Limitations General Appearance: Alert, In No Apparent Distress - Head Head Exam: Normal Inspection, Atraumatic - Eyes Eye exam: Normal Appearance, PERRL, EOMI - ENT ENT Exam: Normal Exam External Ear Exam: Normal External Inspection TM/Canal Exam: Bilateral Normal Nose Exam: Normal Nose Exam Mouth Exam: Normal Inspection Throat Exam: Normal Inspection - Neck Neck Exam: Normal Inspection, Full ROM - Chest Chest Inspection: Normal Inspection - Respiratory Respiratory Exam: Normal Lung Sounds Bilat Respiratory Exam: Bilateral Clear to Auscultation - Cardiovascular Cardiovascular Exam: Regular Rate, Normal Rhythm - Abdominal Exam Abdominal Exam: Normal Inspection, Normal Bowel Sounds Abdominal Tenderness: negative: RUQ, RLQ, LUQ, LLQ, Epigastrium, Suprapubic, Diffuse, Mild, Moderate, Severe, Other - Extremities Extremities Exam: Normal Inspection, Full ROM - Back Back Exam: Normal Inspection - Neurologic Neurological Exam: Alert, Oriented X3, CN II-XII Intact - Psychiatric Psychiatric Exam: Normal Affect, Normal Mood - Skin Skin Exam: Warm, Dry Course - Education/Counseling Educated On: Treatment, Diagnosis, Prognosis, Needs for Follow Up - Diagnosis Discharge Problem: Elevated blood pressure reading - Discharge Plan Condition: Stable - Follow ups/Referrals Follow ups/Referrals: MAYE MOORE [Primary Care Provider] - 3 days - Instructions
[2017-12-17] MEDS ORDERED: CATAPRES TAB 0.1 MG ONE ×2 (19:54→20:30)
[2017-12-17] MEDS ORDERED: CATAPRES TAB 0.1 MG PO ONE ×2 (19:54→20:17)
[2017-12-17 20:34] VITALS: BP 152/94
== END 2017-12-17 20:34 | disposition home or self-care (01) ==
LOC: ER 19:15
DX: R03.0 Elevated blood-pressure reading, without diagnosis of hypertension (principal)
CPT/HCPCS: 99282

== ENCOUNTER → 2018-01-19 | Day surgery (SDC) | payer OTHER, MEDICAID ==
[~2018-01-19] MED LIST: D5 LR 1000 ML 1,000 ML IV ONE; DIPRIVAN VIAL 20 ML ONE
[2018-01-19 09:34] VITALS: BP 110/65
== END ==
LOC: SURG1 06:51
PROVIDERS: ATTEND Surgery
PROC: 0DBN8ZX Excision of Sigmoid Colon, Via Natural or Artificial Opening Endoscopic, Diagnostic (ICD-10-PCS; principal; 2018-01-19 08:30)
PROC: 0DJD8ZZ Inspection of Lower Intestinal Tract, Via Natural or Artificial Opening Endoscopic (ICD-10-PCS; principal; 2018-01-19 08:30)
DX: R10.84 Generalized abdominal pain (principal); R19.4 Change in bowel habit; K40.20 Bilateral inguinal hernia, without obstruction or gangrene, not specified as recurrent
CPT/HCPCS: A4217; J3490; J7120

== ENCOUNTER → 2018-01-29 | Outpatient (CLI) | payer OTHER, MEDICAID ==
[2018-01-19 09:34] VITALS: BP 110/65
[2018-01-29 14:40] LABS: BASOPHILS # (AUTO) 0.1 X10^3/uL (0.0-0.1); BASOPHILS % (AUTO) 1.2 % (0.2-1.0); EOSINOPHILS # (AUTO) 0.4 x10^3/uL (0.0-0.2); EOSINOPHILS % (AUTO) 3.6 % (0.9-2.9); HEMATOCRIT 44.5 % (42.0-54.0); HEMOGLOBIN 15.4 g/dL (13.5-18.0); LYMPHOCYTES # (AUTO) 2.5 X10^3/uL (1.3-2.9); LYMPHOCYTES % (AUTO) 25.6 % (21.0-51.0); MEAN CORPUSCULAR HEMOGLOBIN 31.1 pg (27.0-34.0); MEAN CORPUSCULAR HGB CONC 34.5 g/dL (33.0-35.0); MEAN CORPUSCULAR VOLUME 90.2 fL (80.0-100.0); MEAN PLATELET VOLUME 8.2 fL (7.4-11.0); MONOCYTES % (AUTO) 10.4 % (0.0-13.0); NEUTROPHILS # (AUTO) 5.8 x10^3/uL (2.2-4.8); NEUTROPHILS % (AUTO) 59.2 % (42.0-75.0); PLATELET COUNT 223 X10^3/uL (150.0-450.0); RED BLOOD COUNT 4.93 X10^6/uL (4.7-6.0); RED CELL DISTRIBUTION WIDTH 13.7 % (11.6-16.5); WHITE BLOOD COUNT 9.8 X10^3/uL (3.6-10.0)
[2018-01-29 14:51] LABS: ALANINE AMINOTRANSFERASE 28 Units/L (12-78); ALBUMIN 3.6 g/dL (3.4-5.0); ALKALINE PHOSPHATASE 66 Units/L (46-116); ASPARTATE AMINO TRANSFERASE 20 Units/L (15-37); BLOOD UREA NITROGEN 25 mg/dL (7-18); CALCIUM 8.6 mg/dL (8.5-10.1); CARBON DIOXIDE 27.3 mmol/L (21-32); CHLORIDE 105 mmol/L (98-107); CREATININE 1.94 mg/dL (0.70-1.30); SODIUM 140 mmol/L (136-145); TOTAL PROTEIN 6.8 g/dL (6.4-8.2); eGFR BLACK RACES 44 (>60); eGFR NON BLACK RACES 37 (>60)
--- NOTE | 2018-01-29 15:51 | RAD ---
History: Hypertension, [place], preop hernia surgery Study: PA and lateral chest Findings: The cardiac silhouette and mediastinum appear within normal limits. The lungs are hyperinflated compatible with COPD. There is a dense nodule seen in the right base comp atible with a calcified granuloma. Is unchanged relative to the prior study of 06/15/2017. No acute o sseous abnormality is seen. Impression: 1. Hyperinflation compatible with COPD/bronchospasm. 2. No acute radiographic chest findings. Reported By:
== END ==
LOC: LAB 14:19
PROVIDERS: ATTEND Surgery
DX: K40.21 Bilateral inguinal hernia, without obstruction or gangrene, recurrent (principal)
CPT/HCPCS: 36415; 71046; 80053; 85025; 93005; 93010

== ENCOUNTER 2018-02-02 08:50 | Day surgery (SDC) | payer OTHER, MEDICAID ==
[2018-02-02] MEDS ORDERED: LR 1000 ML IV 1,000 ML IV ONE (09:02)
[2018-02-02] MEDS ORDERED: ANCEF 1 GM IV PREMIX* 1 GM/50 ML BAG IV ONE (09:02)
[2018-02-02] MEDS ORDERED: FENTANYL INJ 250 mcg ONE (09:07)
[2018-02-02] MEDS ORDERED: XYLOCAINE 1% and EPINEPHRINE 1:100,000 ONE (09:28)
[2018-02-02] MEDS ORDERED: BACITRACIN VIAL ONE (09:29)
[2018-02-02] MEDS ORDERED: MARCAINE 0.25% INJ ONE (09:29)
[2018-02-02] MEDS ORDERED: EPHEDRINE SULFATE INJ ONE (10:03)
[2018-02-02] MEDS ORDERED: NS IRRIGATION 1000 ML 1,000 ML with BACITRACIN VIAL 50,000 UNIT IR ONE ×2 (10:11)
[2018-02-02] MEDS ORDERED: PHENERGAN INJ 25 MG IVP PRN (11:23)
[2018-02-02] MEDS ORDERED: DILAUDID INJ IVP PRN (11:23)
[2018-02-02] MEDS ORDERED: ZOFRAN INJ 4 MG VIAL IVP PRN (11:23)
[2018-02-02] MEDS ORDERED: BENADRYL INJ 50 MG VIAL IVP PRN (11:23)
[2018-02-02] MEDS ORDERED: REGLAN INJ 10 MG VIAL IVP PRN (11:23)
[2018-02-02] MEDS ORDERED: ZOFRAN INJ 4 MG VIAL ONE (11:28)
[2018-02-02] MEDS ORDERED: QUELICIN (OR ANECTINE) ONE (11:28)
[2018-02-02] MEDS ORDERED: NEOSTIGMINE INJ ONE (11:28)
[2018-02-02] MEDS ORDERED: XYLOCAINE 2 % (PLAIN) ONE (11:28)
[2018-02-02] MEDS ORDERED: VERSED ONE (11:28)
[2018-02-02] MEDS ORDERED: DIPRIVAN VIAL ONE (11:28)
[2018-02-02] MEDS ORDERED: ROBINUL ONE (11:28)
[2018-02-02] MEDS ORDERED: NORCURON INJ 10 MG VIAL ONE (11:28)
[2018-02-02] MEDS ORDERED: LTA KIT LIDOCAINE 4% ONE (11:28)
[2018-02-02] MEDS ORDERED: SUPRANE IN ONE (11:28)
[2018-02-02] MEDS ORDERED: DILAUDID INJ IVP ONE ×3 (11:30→11:42)
[2018-02-02 14:18] VITALS: BP 127/67
== END 2018-02-02 13:05 | disposition home or self-care (01) ==
LOC: SURG1 08:50
PROVIDERS: ATTEND Surgery
PROC: 0YQ50ZZ Repair Right Inguinal Region, Open Approach (ICD-10-PCS; principal; 2018-02-02 10:45)
DX: K40.90 Unilateral inguinal hernia, without obstruction or gangrene, not specified as recurrent (principal)
CPT/HCPCS: A4216; A4222; S0020; J0330; J0690; J1170; J2001; J2250; J2405; J2710; J3010; J3490; J7120

== ENCOUNTER 2018-02-05 00:29 | Emergency (ER) | payer OTHER, MEDICAID ==
[2018-02-05 00:34] VITALS: BP 161/84; BMI 23.7
--- NOTE | 2018-02-05 01:22 | DR.GENAD ---
HPI - PCP Primary Care Physician: OSCAR - Complaint/Symptoms Chief Complaint Doctors Comments: Patient admits to having a hernia repair on this week. Had urinary retnetion had to be catherized earlier this week. Today had catheter reinserted, was advised to keep in for ten days according to urologist in [place]. Denies pain at this time. Tonight 17ooml of urine obtained. Chief Complaint:: URINARY RETENTION, DIFFICULTY URINATING Self Treatment fo Chief Complaint: NONE - Source History Provided: Patient - Mode of Arrival Mode of Arrival: Ambulatory - Timing Onset of Chief Complaint: 02/05/18 PMH - PMH Past Medical History: Yes Past Medical History: Anxiety, Coronary Artery Disease, Dyslipidemia, GERD, Hypertension, [place] Past Surgical History: Yes Surgical History: CABG/Valve Surgery - Family History History of Family Medical Conditions: Yes Family Medical History: [place], Coronary Artery Disease, Hypertension - Social History Does patient currently use any type of tobacco product: No Have you used tobacco products in the last 12 months: No Type of Tobacco Use: None Does any household member use tobacco: No Alcohol Use: None Do you use any recreational Drugs:: No Lives With: Alone Lives Where: Home - infectious screening In the last 2 months have you had wt loss of >10#?: NO Have you had fever, night sweats or hemotysis?: No Have you traveled outside the country in the last 6 months?: No Isolation: Standard ROS - Review of Systems Eyes: No Symptoms Reported ENTM: No Symptoms Reported Respiratoy: No Symptoms Reported Cardiovascular: No Symptoms Reported Gastrointestinal/Abdominal: No Symptoms Reported Genitourinary: No Symptoms Reported Neurological: No Symptoms Reported Musculoskeletal: No Symptoms Reported Integumentary: No Symptoms Reported Hematologic/Lymphatic: No Symptoms Reported Endocrine: No Symptoms Reported Psychiatric: No Symptoms Reported All Other Systems: Reviewed and Negative PE - Vital Signs Vitals: Temperature 98.2 F Pulse Rate 90 Respiratory Rate 18 Blood Pressure [Left Arm] 152/94 Blood Pressure [Right Arm] 172/92 Blood Pressure 161/84 O2 Sat by Pulse Oximetry 97 - General Limitations: No Limitations General Appearance: Alert, In No Apparent Distress - Head Head Exam: Normal Inspection, Atraumatic - Eyes Eye exam: Normal Appearance, PERRL, EOMI - ENT ENT Exam: Normal Exam External Ear Exam: Normal External Inspection TM/Canal Exam: Bilateral Normal Nose Exam: Normal Nose Exam Mouth Exam: Normal Inspection Throat Exam: Normal Inspection - Neck Neck Exam: Normal Inspection - Chest Chest Inspection: Normal Inspection, Symmetric Chest Wall Rise - Respiratory Respiratory Exam: Normal Lung Sounds Bilat Respiratory Exam: Bilateral Clear to Auscultation - Cardiovascular Cardiovascular Exam: Regular Rate, Normal Rhythm - Abdominal Exam Abdominal Exam: Normal Inspection, Normal Bowel Sounds Abdominal Tenderness: Other (right inguinal area with luisito and occlusive dressing w/o signs of infection). negative: RUQ, RLQ, LUQ, LLQ, Epigastrium, Suprapubic, Diffuse, Mild, Moderate, Severe - Extremities Extremities Exam: Normal Inspection - Back Back Exam: Normal Inspection - Neurologic Neurological Exam: Alert, Oriented X3, CN II-XII Intact - Skin Skin Exam: Warm, Dry, Intact - Diagnosis Discharge Problem: Urinary retention - Discharge Plan Condition: Stable - Follow ups/Referrals Follow ups/Referrals: NFD,None [Primary Care Provider] - 3 days - Instructions
== END 2018-02-05 01:38 | disposition home or self-care (01) ==
LOC: ER 00:29
DX: R33.9 Retention of urine, unspecified (principal)
CPT/HCPCS: 51702; 99282

== ENCOUNTER → 2018-02-28 | Outpatient (CLI) | payer OTHER, MEDICAID ==
[2018-02-05 00:34] VITALS: BP 161/84
[2018-02-28 08:33] LABS: BASOPHILS # (AUTO) 0.1 X10^3/uL (0.0-0.1); BASOPHILS % (AUTO) 0.9 % (0.2-1.0); EOSINOPHILS # (AUTO) 0.4 x10^3/uL (0.0-0.2); EOSINOPHILS % (AUTO) 2.9 % (0.9-2.9); HEMATOCRIT 44.4 % (42.0-54.0); HEMOGLOBIN 14.9 g/dL (13.5-18.0); LYMPHOCYTES # (AUTO) 2.4 X10^3/uL (1.3-2.9); LYMPHOCYTES % (AUTO) 19.9 % (21.0-51.0); MEAN CORPUSCULAR HEMOGLOBIN 30.3 pg (27.0-34.0); MEAN CORPUSCULAR HGB CONC 33.5 g/dL (33.0-35.0); MEAN CORPUSCULAR VOLUME 90.6 fL (80.0-100.0); MEAN PLATELET VOLUME 8.2 fL (7.4-11.0); MONOCYTES % (AUTO) 8.7 % (0.0-13.0); NEUTROPHILS # (AUTO) 8.1 x10^3/uL (2.2-4.8); NEUTROPHILS % (AUTO) 67.6 % (42.0-75.0); PLATELET COUNT 252 X10^3/uL (150.0-450.0); RED BLOOD COUNT 4.91 X10^6/uL (4.7-6.0); RED CELL DISTRIBUTION WIDTH 13.9 % (11.6-16.5); WHITE BLOOD COUNT 12.1 X10^3/uL (3.6-10.0)
[2018-02-28 08:44] LABS: ALBUMIN 3.2 g/dL (3.4-5.0); CARBON DIOXIDE 23.7 mmol/L (21-32); CHOL/HDL RATIO 2.4 (0.0-5.0); COR CA(FOR HYPOALB) 8.6 mg/dL (8.5-10.1); CREATININE 1.73 mg/dL (0.70-1.30); PHOSPHORUS 4.6 mg/dL (2.6-4.7); URIC ACID 4.9 mg/dL (3.5-7.2)
== END ==
LOC: LAB 07:39
PROVIDERS: ATTEND Internal Medicine
DX: I12.9 Hypertensive chronic kidney disease with stage 1 through stage 4 chronic kidney disease, or unspecified chronic kidney disease (principal); N18.3 Chronic kidney disease, stage 3 (moderate)
CPT/HCPCS: 36415; 80061; 80069; 84550; 85025